=== PATIENT | male | born 1945 | race Caucasian/White ===

== ENCOUNTER → 2020-02-20 10:04 | Outpatient (CLI) | payer OTHER, SELFPAY ==
--- NOTE | ~2020-02-20 | XR_ITS ---
EXAMINATION: XR knee RT 3V DATE: 02/20/2020 10:43 INDICATION: Sprain of the medial collateral ligament TECHNIQUE: Three views of the right knee were obtained. COMPARISON: 04/21/2018 FINDINGS: Alignment is normal. No fracture or osteochondral lesion. There is mild tricompartmental os teoarthritis characterized by tiny marginal osteophytes. A small knee joint effusion is present. Ther e is medial soft tissue swelling of the knee. IMPRESSION: 1. Medial soft tissue swelling of the knee and small knee joint effusion without acute osseous abnorm ality. Reviewed, dictated and finalized at location A. IMPRESSION: 1. Medial soft tissue swelling of the knee and small knee joint effusion withou t acute osseous abnormality.
== END ==
PROVIDERS: PCP Family Medicine; Visit Provider Family Medicine
DX: S83.419A Sprain of medial collateral ligament of unspecified knee, initial encounter (principal); M25.461 Effusion, right knee; M79.89 Other specified soft tissue disorders
CPT/HCPCS: 73562

== ENCOUNTER → 2021-04-17 14:28 | Outpatient (CLI) | payer OTHER, SELFPAY ==
--- NOTE | ~2021-04-17 | XR_ITS ---
EXAMINATION: XR knee RT 3V DATE: 04/17/2021 15:15 INDICATION: Right knee pain. TECHNIQUE: 3 views of right knee including standing views were obtained. COMPARISON: Right knee radiographs 02/20/2020 FINDINGS: Bone alignment is normal. No fracture. There is moderate osteoarthritis of medial compartme nt and mild osteoarthritis of lateral and patellofemoral compartments. There is a small knee joint ef fusion. IMPRESSION: 1. Moderate right knee osteoarthritis. Reviewed, dictated and finalized at location A. REPAIRER PULLMAN
== END ==
PROVIDERS: PCP Family Medicine; Visit Provider Family Medicine
DX: M17.11 Unilateral primary osteoarthritis, right knee (principal)
CPT/HCPCS: 73562

== ENCOUNTER → 2023-05-20 08:46 | Outpatient (CLI) | payer OTHER, SELFPAY ==
--- NOTE | ~2023-05-20 | XR_ITS ---
XR knee RT min 4V DATE: 05/20/2023 09:10 INDICATION: Unilateral primary osteoarthritis TECHNIQUE: [place] and standing AP, PA and lateral views COMPARISON: None FINDINGS: Small suprapatellar knee joint effusion. There is periarticular spurring at the patellofemoral, medial and lateral compartments. There is moderately severe loss of medial joint space height. Lateral compartment joint space appears well preserved. No fracture or dislocation, periosteal reaction or bone destruction, radiopaque intra-articular loose body or chondrocalcinosis is detected. IMPRESSION: Tricompartment osteoarthritis, most severe at the medial compartment Small suprapatellar knee joint effusion Reviewed, dictated and finalized at location L. CH SERVICE ASSOCIATE IMPRESSION: Tricompartment osteoarthritis, most severe at the medial compartmen t Small suprapatellar knee joint effusion
== END ==
PROVIDERS: PCP Family Medicine; Visit Provider Family Medicine
DX: M17.11 Unilateral primary osteoarthritis, right knee (principal); M25.461 Effusion, right knee
CPT/HCPCS: 73564

== ENCOUNTER 2024-04-13 14:47 | Outpatient (CLI) | payer OTHER, SELFPAY ==
--- NOTE | ~2024-04-13 | XR_ITS ---
XR shoulder RT min 2V Ordering provider: Brenda Ackerman PA-C History: . M25.511 - Pain in right shoulder . Comparison: None. FINDINGS: BONES: No acute fracture or dislocation. JOINT SPACES: The acromioclavicular joint osteoarthritic changes. The glenohumeral joint shows severe osteoarthritic changes. SOFT TISSUES: Synovium chondromatosis. IMPRESSION: No acute osseous abnormality right shoulder. Severe osteoarthritic changes seen. Reviewed, dictated and finalized at location A. HOLDER
== END 2024-04-13 14:48 | disposition home or self-care (01) ==
LOC: MICIMG 14:49
PROVIDERS: PCP Family Medicine; Visit Provider Physician Assistant
DX: M19.011 Primary osteoarthritis, right shoulder (principal)
CPT/HCPCS: 73030

== ENCOUNTER 2024-05-15 00:20 | Day surgery (SDC) | payer OTHER, SELFPAY ==
[2024-05-12 09:32] VITALS: BMI 33.2
[2024-05-15] VITALS (13 sets, daily range): BP systolic 138–169; BP diastolic 63–84; PULSE 55–75; RESP 13–20; TEMP 36.4; O2SAT 93–97; BMI 33.7
[2024-05-15 07:39] LABS: Basophils Percent Auto 0.1 % (0.2-1.2); Eosinophils Absolute Auto 0.2 K/mm3 (0-0.3); Eosinophils Percent Auto 2.1 % (0-4.4); Hematocrit 44.7 % (42.0-52.0); Hemoglobin 16.4 g/dL (14.0-18.0); Immature Granulocyte Absolute 0.03 K/mm3 (0.00-0.031); Immature Granulocyte Percent A 0.3 % (0-0.5); Lymphocytes Absolute Auto 0.54 K/mm3 (0.9-3.2); Lymphocytes Percent Auto 5.1 % (18.3-44.2); Mean Corpuscular HGB Conc 36.7 g/dl (32-36); Mean Corpuscular Hemoglobin 32.3 pg (26-34); Mean Corpuscular Volume 88.2 fl (80-100); Mean Platelet Volume 9.8 fl (7.4-10.4); Monocytes Absolute Auto 0.1 K/mm3 (0.1-0.6); Monocytes Percent Auto 0.7 % (2.6-8.5); Neutrophils Absolute Auto 9.8 K/mm3 (1.3-6.7); Neutrophils Percent Auto 91.7 % (45.5-73.1); Platelet Count Result 216 k/mm3 (150-375); Red Blood Count 5.07 M/mm3 (4.6-6.20); Red Cell Distribution Width 12.5 % (11.5-14.5); White Blood Count 10.7 K/mm3 (4.5-10.0)
[2024-05-15 07:49] LABS: Anion Gap 6 mmol/L (4-12); Blood Urea Nitrogen 17 mg/dL (9-20); Calcium 9.7 mg/dL (8.4-10.2); Carbon Dioxide 21 mmol/L (22-30); Chloride 110 mmol/L (98-107); Estimated CRCL calculation 66 ml/min; Estimated Glomerular Filt Rate > 60; Glucose 157 mg/dL (65-110); Potassium 4.2 mmol/L (3.4-5.0); Sodium 137 mmol/L (137-145)
[2024-05-15] MEDS: diphenhydrAMINE HCl CAP 25 MG CAPSULE 50 MG PO (07:56)
[2024-05-15] MEDS: predniSONE 20 MG TABLET 40 MG PO (07:56)
--- NOTE | 2024-05-15 09:07 | P.SEDATION_ITS ---
Moderate Sedation Note-Pt Data Patient Data Allergies Allergy/AdvReac Type Severity Reaction Status Date / Time Iodinated Contrast Media Allergy Mild rash Verified 05/15/24 07:50 iodine Allergy Mild Rash Verified 05/15/24 07:50 Penicillins Allergy Mild rash Verified 05/15/24 07:50 ISRRAEL Inhibitors AdvReac Intermediate cough Verified 05/15/24 07:50 levofloxacin (From Levaquin) AdvReac Intermediate acid Verified 05/15/24 07:50 reflux, stomach spasm codeine AdvReac Mild Nausea and Verified 05/15/24 07:50 Vomiting Home Medications ?Medication ?Instructions ?Recorded ?Confirmed ?Type fish oil-dha-epa 1,200 mg-144 1 cap PO DAILY 05/12/19 05/12/24 History mg-216 mg capsule aspirin 81 mg tablet,delayed 81 mg PO DAILY 07/09/20 05/15/24 History release coenzyme Q10 100 mg capsule 100 mg PO BID 08/15/20 05/12/24 History (CoQ-10) ipratropium bromide 21 mcg (0.03 2 spray intranasal TID 04/28/22 05/12/24 History %) nasal spray cyanocobalamin (vitamin B-12) 500 1,000 mcg PO DAILY 12/14/23 05/12/24 History mcg chewable tablet cyclobenzaprine 5 mg tablet 5 mg PO TID PRN muscle spasm #60 12/14/23 05/12/24 Rx tabs montelukast 10 mg tablet See Rx Instructions .Route 02/06/24 05/12/24 Rx .COMPLEX #90 tabs pravastatin 20 mg tablet See Rx Instructions .Route 02/06/24 05/12/24 Rx .COMPLEX #90 tabs losartan 100 See Rx Instructions .Route 03/19/24 05/15/24 Rx mg-hydrochlorothiazide 12.5 mg .COMPLEX #90 tabs tablet sildenafil 100 mg tablet (Viagra) 100 mg PO DAILY PRN ED #30 tabs 04/12/24 05/12/24 Rx Current Medications: Active Medications Sodium Chloride (Normal Saline Iv) 500 mls @ 100 mls/hr IV CONT .Q5H BHUMI Sedation/Anesthesia: No previous sedation/anesthesia problems (including family history). [facility] Past Medical History Medical History Absence of gallbladder Atherosclerosis of abdominal aorta Bradycardia Calculus of gallbladder with chronic cholecystitis without obstruction Caliectasis determined by ultrasound of kidney CAP (community acquired pneumonia) Constipation DISH (diffuse idiopathic skeletal hyperostosis) ED (erectile dysfunction) of non-organic origin Erectile dysfunction Hematochezia Hepatic cyst Impaired fasting glucose Low HDL (under 40) Mixed hyperlipidemia Mixed hyperlipidemia Neoplasm of uncertain behavior of skin RANDY (obstructive sleep apnea) RANDY on CPAP Pancreatitis Pancreatitis, gallstone Seasonal allergies Surgical History Surgical History History of appendectomy History of cholecystectomy History of facial surgery Family History Family History Father Family history of lung cancer Patient's father is Mother Acute myocardial infarction Family history of type 2 diabetes mellitus Sibling Hypertension Patient's sister is in good health Other Diabetes mellitus Social History Social History Social History: Smoking status: Never smoker Second hand tobacco smoke exposure: Yes Alcohol intake: never Substance use: never Substance use type: does not use Do You Feel Safe in your Home?: Yes Lack of Transportation: No Lack of Food: Never True Current Housing: I Have Housing Concerned About Future Housing: No Difficulty Paying Gas/Electric Bills: No Difficulty Paying for Meds: No Currently Unemployed: YES Education: Decline to Answer Difficulty w/ Childcare or Family Care: No Living arrangements: with family Occupation/Education: retired Gender identity (if verbalized by the patient): Male Sexual Orientation (if Verbalized by the Patient): Straight or Heterosexual Spiritual care concerns: No Mod Sed Physical Exam Physical Exam Pre Procedural Exam: Normal: Heart Rate and Heart Rhythm Hours since solid foods: 12 Hours since liquid intake: 12 Mallampati Classification: class II Internal Medicine - PN: Obj Da Vital Signs Vital Signs: Vital Signs - 24 hr 05/15/24 07:00 Temperature 36.4 C L Pulse Rate 75 Respiratory Rate 17 Blood Pressure 149/63 H Pulse Oximetry 94 Oxygen Delivery Room Air Meds/Results Medications: Active Medications Generic Name Dose Route Start Last Admin Trade Name Freq PRN Reason Stop Dose Admin Sodium Chloride 500 mls @ 100 mls/hr 05/15/24 08:30 Normal Saline Iv IV CONT .Q5H [facility] Labs 05/15/24 07:33 05/15/24 07:33 Labs: Laboratory Results - last 24 hr 05/15/24 07:33 WBC 10.7 H RBC 5.07 Hgb 16.4 Hct 44.7 MCV 88.2 MCH 32.3 MCHC 36.7 H RDW 12.5 Plt Count 216 MPV 9.8 Immature Gran % (Auto) 0.3 Neut % (Auto) 91.7 H Lymph % (Auto) 5.1 L [place] % (Auto) 0.7 L Eos % (Auto) 2.1 Baso % (Auto) 0.1 L Lymph # (Auto) 0.54 L [place] # (Auto) 0.1 Eos # (Auto) 0.2 Baso # (Auto) 0.0 Abs Immat Gran (auto) 0.03 Absolute Neuts (auto) 9.8 H Absolute Nucleated RBC 0.000 Nucleated RBC % 0.0 Sodium 137 Potassium 4.2 Chloride 110 H Carbon Dioxide 21 L Anion Gap 6 BUN 17 Creatinine 0.90 Estim Creat Clear Calc 66 Estimated GFR > 60 Glucose 157 H Calcium 9.7 ASA Classification/Sedation ASA Classification/Sedation ASA Class: III Emergent: No Risks: Risks, benefits and alternatives explained and patient/family accepted plan for sedation. Patient re-evaluated immediately prior to sedation.
--- NOTE | 2024-05-15 09:07 | WPDHPUPDATE1 ---
History and Physical Update Update Date/Time: 05/15/24 09:07 History and Physical has been reviewed, including an updated exam of the patient. There are NO changes in the patient's condition. Risks, benefits, and alternatives have been discussed and questions answered. Patient agrees to proceed with procedure.
--- NOTE | 2024-05-15 09:29 | P.PCNCC_ITS ---
Cardiac Cath Procedure Note Date of procedure:: 05/15/24 Performing physician:: CATHETERIZATION LABORATORY REPORT Procedure Date: 05/15/2024 Referring Physician:Dr. Elizondo Anesthesia: Versed and Fentanyl were ordered and given in my presence at 0915, procedure ended at 0927. Supervision of nurse, Solitario Stephen monitored moderate sedation with 2mg Versed and 50mcg Fentanyl was provided for 12 minutes. Pre-op Diagnosis: Abnormal Stress Test Post-op Diagnosis: Abnormal Stress Test Procedure(s): Left heart catheterization with coronary angiography Access Site: Right radial artery Brief History and Clinical Indications: All risks, benefits and alternatives to left heart catheterization with or without percutaneous coronary intervention was discussed at length with the patient. Risk of complications including but not limited to bleeding, infection, arrhythmia, stroke, worsening kidney function, blood loss, groin hematoma, limb loss, emergency coronary artery bypass grafting, and even were discussed with the patient and all questions were answered. The patient understood and wished to proceed. Time out called, patient name, date of , medical record number, allergies, procedure performed, identify Meat And Poultry Inspector, patient and staff member concurred with accurate data, procedure carried on. Findings: LEFT HEART CATHETERIZATION FINDINGS: 1. Left main: The left main coronary artery has mild stenosis at its ostium without any significant obstructive disease. 2. Left anterior descending: The LAD and the diagonal branches have mild stenosis without any significant obstructive angiographic disease. 3. Left circumflex: The left circumflex artery and the main marginal branches have mild stenosis without any significant obstructive angiographic disease. 4. Right coronary artery: The RCA has mild stenosis without any significant obstructive angiographic disease. The RCA is the dominant vessel. 5. Left ventricle: A. End-diastolic pressure 15 mmHg. B. LV gram deferred. C. No significant gradient across aortic valve on catheter pullback. 6. Opening AO pressure 126/63 and closing AO pressure 145/61 Description of Procedure: Informed consent signed and placed in the chart. Patient transferred to agriculture laboratory technician room. Prepped and draped in usual sterile fashion. 2% lidocaine injected subcutaneously in right wrist area. 22-gauge venipuncture catheter used to access the right radial artery with the Seldinger technique. 6-FR slender sheath placed in right radial artery. Nitroglycerin 200mcg, Verapamil 2.5mg, and Heparin 5000U was given intraarterial through the sheath. J wire advanced under fluoroscopy 5F TIG diagnostic catheter engaged Left Main Coronary Artery. 5F JR4 diagnostic catheter engaged Right Coronary Artery Multiple orthogonal angiogram obtained and reviewed 5F Pigtail diagnostic catheter crossed aortic valve to obtain LVEDP, LV angiogram deferred. Hemostasis was achieved by application of TR band. Assessment: Mild CAD Post Operative Condition: Stable No significant blood loss Disposition: Home Plan: Continue aggressive medical therapy and risk factor modification. Emerson Kat Interventional Cardiology
== END 2024-05-15 12:53 | disposition home or self-care (01) ==
PROVIDERS: PCP Family Medicine; Visit Provider Internal Medicine
PROC: 4A023N7 Measurement of Cardiac Sampling and Pressure, Left Heart, Percutaneous Approach (ICD-10-PCS; CPT 93452; principal; 2024-05-15 08:30)
DX: I25.10 Atherosclerotic heart disease of native coronary artery without angina pectoris (principal); E78.2 Mixed hyperlipidemia; I10 Essential (primary) hypertension; N52.9 Male erectile dysfunction, unspecified; G47.30 Sleep apnea, unspecified; G47.33 Obstructive sleep apnea (adult) (pediatric); I70.0 Atherosclerosis of aorta; M48.10 Ankylosing hyperostosis [Forestier], site unspecified; Z79.82 Long term (current) use of aspirin; Z99.89 Dependence on other enabling machines and devices; Z98.890 Other specified postprocedural states; Z90.49 Acquired absence of other specified parts of digestive tract; Z87.19 Personal history of other diseases of the digestive system; Z80.1 Family history of malignant neoplasm of trachea, bronchus and lung; Z82.49 Family history of ischemic heart disease and other diseases of the circulatory system
CPT/HCPCS: 36415; 80048; 85025; 93458; C1769; C1887; C1894; J1644; J2003; J2250; J2305; J3010; J7040

== ENCOUNTER 2025-03-20 11:21 | Outpatient (CLI) | payer OTHER, SELFPAY ==
--- NOTE | ~2025-03-20 | XR_ITS ---
EXAMINATION: XR chest 2V, 03/20/2025 11:27 LANGUAGE TUTOR HISTORY: R06.00 - Dyspnea, unspecified COMPARISON: No comparisons available. Technique: 2 views obtained. Findings: The lungs are clear, no effusion. No pneumothorax. Heart is normal size. Mediastinal and hilar contours are within normal limits. Bony thorax no acute abnormality. Impression: No acute cardiopulmonary abnormality. Reviewed, dictated and finalized at location P. UAGE TUTOR Impression: No acute cardiopulmonary abnormality.
== END 2025-03-20 11:22 | disposition home or self-care (01) ==
PROVIDERS: PCP Family Medicine; Visit Provider Physician Assistant
DX: R06.00 Dyspnea, unspecified (principal)
CPT/HCPCS: 71046